=== PATIENT | female | born 1960 | race Caucasian/White ===

== ENCOUNTER 2021-12-02 09:58 | Emergency (ER) | payer BC, SELFPAY ==
--- NOTE | ~2021-12-02 | XR_ITS ---
XR ankle RT min 3V 12/02/2021 10:31 Indication: Right ankle pain Procedure: 4 views right ankle Comparison: No prior studies for comparison. Findings: There is an oblique distal fibular fracture with changes laterally displaced approximately 3 mm. There is a mildly displaced medial malleolar fracture. There is widening of the medial ankle mo rtise. There is moderate diffuse soft tissue swelling. Impression: 1: Mildly displaced bimalleolar fracture. Reviewed, dictated and finalized at location A. Impression: 1: Mildly displaced bimalleolar fracture.
[2021-12-02 10:08] VITALS: BP 152/84; PULSE 101; RESP 20; TEMP 37.2; O2SAT 97
--- NOTE | 2021-12-02 10:36 | ED.GENADULT ---
HPI - General Adult General Chief complaint: Extremity Injury, Lower Stated complaint: Injured right ankle Source: patient Mode of arrival: ambulatory Limitations: no limitations History of Present Illness HPI narrative: Patient presents for evaluation of right ankle pain since last night. She indicates she was drinking and was attempting to get off a trampoline unsuccessfully. In the process of doing so, she twisted her right ankle. She has noted constant pain since that time. At rest pain is 2 out of 10 in severity but increases to 7 out of 10 with movement and weightbearing. She took some naproxen which helped with the swelling but not with the pain. She denies paresthesias. She is able to bear weight. No additional complaints or concerns. She is visiting [facility] from [place] for a . Related Data Home Medications Medication Instructions Recorded Confirmed escitalopram oxalate 20 mg tablet 20 mg PO DAILY 12/02/21 12/02/21 pramipexole 0.75 mg tablet 0.75 mg PO DAILY 12/02/21 12/02/21 Allergies Allergy/AdvReac Type Severity Reaction Status Date / Time No Known Allergies Allergy Verified 12/02/21 10:10 Review of Systems Review of Systems: CONSTITUTIONAL: Denies fever, chills, or sweats. EYES: Denies visual changes, redness, or discharge. ENT: Denies rhinorrhea, congestion, sore throat, or otalgia. CARDIOVASCULAR: Denies chest pain, palpitations, or edema. RESPIRATORY: Denies cough or dyspnea. GASTROINTESTINAL: Denies abdominal pain, nausea, vomiting, or diarrhea. GENITOURINARY: Denies dysuria or hematuria. SKIN: Denies rash or itching. MUSCULOSKELETAL: Reports right ankle pain. denies back pain or myalgia. NEUROLOGIC: Denies headache, numbness, dizziness, or weakness. PSYCHIATRIC: Denies anxiety or depression. [facility] Past Medical History Medical History (Updated 12/02/21 @ 11:02 by Fercho Llanos, DELMA, BARRON) Depression Restless leg Surgical History Surgical History History of History of hysterectomy Family History Family History Father Cerebrovascular accident Social History Social History Smoking packs per day: 1 Smoking cigarettes per day: 20.0 Smoking status: Current every day smoker Alcohol intake: current Alcohol use details: social Substance use: never Living arrangements: with family Gender identity (if verbalized by the patient): Female Sexual Orientation (if Verbalized by the Patient): Straight or Heterosexual Spiritual care concerns: No Exam Narrative: GENERAL: Well-appearing, well-nourished, and in no acute distress. HEAD: Normocephalic, atraumatic. EYES: PERRLA and EOMI. ENT: Nares clear, no rhinorrhea or epistaxis. Mucous membranes moist. Oropharynx without tonsillar hypertrophy exudate or other lesions. Bilateral TMs pearly becerra nonbulging NECK: Supple. No adenopathy or masses. No carotid bruits or JVD CHEST: Clear to auscultation. No respiratory distress. No wheezes rales or rhonchi HEART: Regular rate and rhythm. No murmur heard. Normal peripheral pulses. ABDOMEN: Soft, nontender, nondistended, normal active bowel sounds. EXTREMITIES: Able to dorsi and plantarflex her right foot. There is tenderness noted to the medial malleolus of the right ankle and over the anterior aspect of the right ankle region. There is soft tissue swelling noted. SKIN: Warm, dry, no rash. NEURO: No focal deficits. Alert and oriented x3. PSYCH: Normal mood and affect. Course Course Emergency Course: This is a 61-year-old female that resides in [place] who is here on a trip when she injured her ankle. X-ray shows mildly displaced bimalleolar fracture. She is heading back to [place] tomorrow. She was placed in a short leg OCL with ankle stirrup. Post splint N/V intact. Provided wi
== END 2021-12-02 11:05 | disposition home or self-care (01) ==
PROVIDERS: Emergency Provider Nurse Practitioner
DX: S82.841A Displaced bimalleolar fracture of right lower leg, initial encounter for closed fracture (principal); X50.9XXA Other and unspecified overexertion or strenuous movements or postures, initial encounter; Y93.44 Activity, trampolining; F32.A Depression, unspecified; G25.81 Restless legs syndrome; F17.210 Nicotine dependence, cigarettes, uncomplicated
CPT/HCPCS: 29515; 73610; 99214; G0463